=== PATIENT | female | born 1985 | race Caucasian/White ===

== ENCOUNTER 2019-07-27 20:02 | Outpatient (CLI) | payer MEDICARE, OTHER ==
[~2019-07-27 20:02] MED LIST: AMIT75TA2 PO; BIRTH CONTROL; CEPH500C PO; CETI10CA PO; DOXY100C2 PO; FAMO-119 PO; HYDR25TA4 PO; MECL25TA3 PO; MIDO10TA PO; OMEP-10 PO; ONDA8TAB13 PO; ONDA8TAB9 PO; OXYC1TAB87 PO; SUCR1TAB36 PO; ZAFI20TA13 PO
== END 2019-07-28 06:36 | disposition home or self-care (01) ==
LOC: SLEEP 20:02
PROVIDERS: ATTEND Otolaryngology Otolaryngology/Facial Plastic Surgery
DX: G47.33 Obstructive sleep apnea (adult) (pediatric) (principal); R09.02 Hypoxemia; Z83.2 Family history of diseases of the blood and blood-forming organs and certain disorders involving the immune mechanism
CPT/HCPCS: 95810

== ENCOUNTER 2019-08-25 20:41 | Outpatient (CLI) | payer MEDICARE, MEDICAID | END 2019-08-26 06:57 | disposition home or self-care (01) | LOC: SLEEP 20:41 | PROVIDERS: ATTEND Nurse Practitioner | DX: G47.33 Obstructive sleep apnea (adult) (pediatric) (principal); R09.02 Hypoxemia | CPT/HCPCS: 95811 ==